=== PATIENT | male | born 1990 | race Hispanic/Latino ===

== ENCOUNTER 2017-03-04 17:30 | Emergency (ER) | payer BC ==
--- NOTE | 2017-03-04 20:38 | XRay Report ---
FINAL REPORT EXAM: XR KNEE 3V LT HISTORY: left knee pain/injury TECHNIQUE: Three views left knee Comparison: None FINDINGS: There is mild osteopenia for the patient's age and gender. There is a well corticated bone chip adjacent to the lateral femoral condyle measuring 4 x 2 millimeters. There is mild sclerosis of the lateral aspect lateral femoral condyle subcortical location without definite articular irregularity. There is an 8 x 2 millimeter bone chip along the intercondylar notch. There is no significant suprapatellar bursal effusion. IMPRESSION: Intracondylar bone chip. Old well corticated bone chip along the lateral femoral condyle with possible adjacent lateral femoral condylar sclerosis but no definite articular irregularity to suggest donor site. There is no suprapatellar bursal effusion or significant soft tissue abnormality. Recommend MRI to assess for associated soft tissue abnormality related to the intracondylar bone chip.
--- NOTE | 2017-03-05 00:53 | Emergency Department Report ---
ED Lower Extremity HPI - General Chief Complaint: Extremity Injury, Lower Stated Complaint: KNEE PAIN Time Seen by Provider: 03/05/17 00:49 Source: patient Mode of arrival: Ambulatory Limitations: No Limitations - History of Present Illness Initial Comments: This is a 26 y.o. male with left knee pain x 2 days. Patient states he dislocated knee 2 years ago dancing on cruise. He had images done then that where normal, knee was relocated and continues to have occasional pain. Patient states pain is 10/10, intermittent, and sharp. He tried soaking in water, used ice, ibuprofen, and immobilization. He is wearing a brace for support. Denies numbness, tingling, discoloration, and swelling. MD Complaint: knee injury -: year(s) (2) Injury: Knee: Left Type of Injury: hyperflexion Place: other (cruise 2 years ago) Severity: severe Severity scale (0 -10): 10 Improves With: NSAID, cold therapy, immobilization Worsens With: weight bearing Associated Symptoms: snap/pop sensation, swelling, able to partially bear weight. denies: numbness, tingling, unable to bear weight, ambulatory Treatments Prior to Arrival: cold therapy, NSAIDS - Related Data Previous Rx's Medication Instructions Recorded Last Taken Type traMADol [Ultram 50 MG tab] 50 mg PO Q6HR PRN 7 Days #28 tablet 03/05/17 Unknown Rx Allergies Allergy/AdvReac Type Severity Reaction Status Date / Time No Known Allergies Allergy Unverified 03/04/17 18:15 ED Review of Systems ROS: Stated complaint: KNEE PAIN Other details as noted in HPI Constitutional: no symptoms reported, see HPI. denies: chills, diaphoresis, fever, malaise, weakness Respiratory: no symptoms reported, see HPI. denies: cough, orthopnea, shortness of breath, SOB with exertion, SOB at rest, stridor, wheezing Cardiovascular: as per HPI. denies: chest pain, palpitations, dyspnea on exertion, orthopnea, edema, syncope, paroxysmal nocturnal dyspnea Musculoskeletal: as per HPI, arthralgia (left knee). denies: back pain, joint swelling, myalgia Skin: as per HPI. denies: rash, lesions, change in color, change in hair/nails , pruritus Neurological: as per HPI. denies: headache, weakness, numbness, paresthesias, confusion, abnormal gait, vertigo Psychiatric: as per HPI. denies: anxiety, depression, auditory hallucinations, visual hallucinations, homicidal thoughts, suicidal thoughts ED Past Medical Hx - Past Medical History Previous Medical History?: Yes Additional medical history: Left knee pain/ injury - Surgical History Past Surgical History?: Yes Hx Appendectomy: Yes - Social History Smoking Status: Former Smoker Substance Use Type: Alcohol, Marijuana - Medications Home Medications: Home Medications Medication Instructions Recorded Confirmed Last Taken Type traMADol [Ultram 50 MG tab] 50 mg PO Q6HR PRN 7 Days #28 tablet 03/05/17 Unknown Rx ED Physical Exam - General Limitations: No Limitations General appearance: alert, in no apparent distress - Respiratory Respiratory exam: Present: normal lung sounds bilaterally. Absent: respiratory distress, wheezes, rales, rhonchi, stridor, chest wall tenderness, accessory muscle use, decreased breath sounds, prolonged expiratory - Cardiovascular Cardiovascular Exam: Present: regular rate, normal rhythm, normal heart sounds. Absent: bradycardia, tachycardia, irregular rhythm, systolic murmur, diastolic murmur, rubs, gallop, clicks, JVD, S3, S4 - GI/Abdominal GI/Abdominal exam: Present: soft, normal bowel sounds. Absent: distended, tenderness, guarding, rebound, rigid, diminished bowel sounds, hyperactive bowel sounds, hypoactive bowel sounds, organomegaly, mass, bruit, pulsatile mass , hernia - Expanded Lower Extremity Exam Left Hip exam: Present: normal inspection, full ROM. Absent: tenderness, swelling, abrasion, laceration, ecchymosis, deformity, crepidus, dislocation, erythema, external rotation, internal rotation, shortening, pelvic stability Upper Leg exam: Present: normal inspection, full ROM. Absent: tenderness, swelling, abrasion, laceration, ecchymosis, deformity, crepidus, dislocation, erythema Knee exam: Present: tenderness, pain w/ pronation/supination, posterior draw sign (negative), full knee extension. Absent: swelling, abrasion, laceration, ecchymosis, deformity, crepidus, dislocation, erythema, effusion, pain/laxity with valgus, pain/laxity with varus Lower Leg exam: Present: normal inspection, full ROM. Absent: tenderness, swelling, abrasion, laceration, ecchymosis, deformity, crepidus, dislocation, erythema, palpable cord, Sagar's sign Ankle exam: Present: normal inspection, full ROM. Absent: tenderness, swelling , abrasion, laceration, ecchymosis, deformity, crepidus, dislocation, erythema, anterior draw sign Foot/Toe exam: Present: normal inspection, full ROM. Absent: tenderness, swelling, abrasion, laceration, ecchymosis, deformity, crepidus, dislocation, erythema, amputation, puncture wound, foreign body, calcaneal tenderness, tenderness at base of 5th metatarsal, nail avulsion, subungual hematoma Neuro vascular tendon exam: Present: no vascular compromise. Absent: pulse deficit, abnormal cap refill, motor deficit, sensory deficit, tendon deficit, extremity cold to touch, pallor, abnormal 2-point discrimination, decreased fine /light touch, foot drop ED Course Vital Signs 03/04/17 18:15 Temperature 98.4 F Pulse Rate 56 L Respiratory 18 Rate Blood Pressure 127/69 O2 Sat by Pulse 99 Oximetry ED Lower Extremity MDM - Radiology Data Radiology results: image reviewed interpreted by me: radiology FINAL REPORT EXAM: XR KNEE 3V LT HISTORY: left knee pain/injury TECHNIQUE: Three views left knee Comparison: None FINDINGS: There is mild osteopenia for the patient's age and gender. There is a well corticated bone chip adjacent to the lateral femoral condyle measuring 4 x 2 millimeters. There is mild sclerosis of the lateral aspect lateral femoral condyle subcortical location without definite articular irregularity. There is an 8 x 2 millimeter bone chip along the intercondylar notch. There is no significant suprapatellar bursal effusion. IMPRESSION: Intracondylar bone chip. Old well corticated bone chip along the lateral femoral condyle with possible adjacent lateral femoral condylar sclerosis but no definite articular irregularity to suggest donor site. There is no suprapatellar bursal effusion or significant soft tissue abnormality. Recommend MRI to assess for associated soft tissue abnormality related to the intracondylar bone chip. Critical care attestation.: If time is entered above; I have spent that time in minutes in the direct care of this critically ill patient, excluding procedure time. ED Disposition Clinical Impression: Left knee pain Qualifiers: Chronicity: chronic Qualified Code(s): M25.562 - Pain in left knee Disposition: - TO HOME OR SELFCARE Is pt being admited?: No Does the pt Need Aspirin: No Condition: Stable Additional Instructions: Follow-up with Orthopedic. Prescriptions: traMADol [Ultram 50 MG tab] 50 mg PO Q6HR PRN 7 Days #28 tablet PRN Reason: Pain Referrals: PRIMARY CARE, [Primary Care Provider] - 3-5 Days JASON STILL MD [Staff Physician] - 3-5 Days Time of Disposition: 02:21 Print Language: TELUGU
[2017-03-05 02:54] VITALS: BP 142/82
== END 2017-03-05 02:52 | disposition home or self-care (01) ==
LOC: ED 17:30
DX: M25.562 Pain in left knee (principal); Z87.891 Personal history of nicotine dependence; F12.10 Cannabis abuse, uncomplicated; X58.XXXA Exposure to other specified factors, initial encounter; Y93.89 Activity, other specified; Y92.89 Other specified places as the place of occurrence of the external cause; Y99.8 Other external cause status
CPT/HCPCS: 99283